=== PATIENT | male | born 1985 | race Two or more races ===

== ENCOUNTER 2017-11-01 20:49 | Emergency (ER) | payer OTHER ==
[2017-11-01] MEDS: IBUPROFEN 600 MG TAB PO (22:00)
[2017-11-01] MEDS: GABAPENTIN 300 MG CAP PO (22:00)
== END 2017-11-01 22:20 | disposition home or self-care (01) ==
LOC: M ED 20:49
DX: F33.9 Major depressive disorder, recurrent, unspecified (principal); F90.9 Attention-deficit hyperactivity disorder, unspecified type; F42.9 Obsessive-compulsive disorder, unspecified; F43.10 Post-traumatic stress disorder, unspecified; Z79.899 Other long term (current) drug therapy
CPT/HCPCS: 72040